=== PATIENT | male | born 2000 | race African-American/Black ===

== ENCOUNTER 2019-04-07 12:20 | Emergency (ER) | payer MEDICAID ==
[~2019-04-07] VITALS: Ht 172.7 cm; Wt 62.3 kg
[2019-04-07 12:30] VITALS: Ht 172.7 cm; Wt 62.3 kg
[2019-04-07] MEDS ORDERED: TORADOL10 MG PO (14:32)
[2019-04-07 15:38] VITALS: BP 128/67
== END 2019-04-07 15:38 | disposition home or self-care (01) ==
LOC: D.ER 12:20
DX: S40.212A Abrasion of left shoulder, initial encounter (principal); V03.99XA Pedestrian with other conveyance injured in collision with car, pick-up truck or van, unspecified whether traffic or nontraffic accident, initial encounter; Y93.89 Activity, other specified; Y92.89 Other specified places as the place of occurrence of the external cause; S61.211A Laceration without foreign body of left index finger without damage to nail, initial encounter; S01.01XA Laceration without foreign body of scalp, initial encounter

== ENCOUNTER 2019-04-24 18:10 | Emergency (ER) | payer MEDICAID ==
[~2019-04-24] VITALS: Ht 172.7 cm; Wt 61.4 kg
[~2019-04-24 18:10] MED LIST: TORADOL10 MG PO
[2019-04-24 18:14] VITALS: Ht 172.7 cm; Wt 61.4 kg
[2019-04-24 18:53] VITALS: BP 110/60
== END 2019-04-24 18:57 | disposition home or self-care (01) ==
LOC: D.ER 18:10
DX: S61.211D Laceration without foreign body of left index finger without damage to nail, subsequent encounter (principal); X58.XXXD Exposure to other specified factors, subsequent encounter; Z48.02 Encounter for removal of sutures